=== PATIENT | female | born 1945 | race Caucasian/White ===

== ENCOUNTER → 2019-05-07 | Outpatient (CLI) | payer MEDICARE, BC ==
[~2019-05-07] MED LIST: CALCIUM PO; CHOL200024 PO; CYAN25009 PO; FISH OIL PO; FOLIC ACID PO; LEVO75TA PO; RANI150T4 PO; TURM538C PO
[2019-05-07 11:13] LABS: BASOPHILS # (AUTO) 0.03 x10^3/uL (0-0.1); BASOPHILS % (AUTO) 1 % (0-1); EOSINOPHILS # (AUTO) 0.11 x10^3/uL (0-0.4); EOSINOPHILS % (AUTO) 2 % (1-7); LYMPHOCYTES # (AUTO) 1.92 x10^3/uL (1-3.4); LYMPHOCYTES % (AUTO) 39 % (22-44); MD NO; MEAN CORPUSCULAR HEMOGLOBIN 32.1 pg (27.0-34.8); MEAN CORPUSCULAR HGB CONC 33.1 g/dL (32.4-35.8); MEAN CORPUSCULAR VOLUME 96.8 fL (80-100); MEAN PLATELET VOLUME 8.7 fL (7.4-10.4); MONOCYTES % (AUTO) 12 % (2-9); NEUTROPHILS # (AUTO) 2.21 x10^3/uL (1.8-6.8); NEUTROPHILS % (AUTO) 45 % (42-75); PLATELET COUNT 207 x10^3/uL (130-400); RED BLOOD COUNT 4.41 x10^6/uL (3.82-5.3); RED CELL DISTRIBUTION WIDTH 14.6 % (9.6-15.2)
[2019-05-07 11:24] LABS: ANION GAP 7 mmol/L (5-15); CALCIUM 9.1 mg/dL (8.5-10.1); CHLORIDE 107 mmol/L (98-107)
== END | disposition home or self-care (01) ==
LOC: STAR 10:07
PROVIDERS: ATTEND Obstetrics & Gynecology Female Pelvic Medicine and Reconstructive Surgery
DX: Z01.818 Encounter for other preprocedural examination (principal); N39.3 Stress incontinence (female) (male); N81.6 Rectocele; N81.10 Cystocele, unspecified
CPT/HCPCS: 36415; 71046; 80048; 85025; 93005

== ENCOUNTER 2019-06-03 07:46 | Day surgery (SDC) | payer MEDICARE, BC ==
[~2019-06-03] VITALS: Ht 165.1 cm; Wt 55.8 kg
[2019-06-03] MEDS ORDERED: FENTANYL PF 250 MCG/5ML ONE (08:03)
[2019-06-03] MEDS ORDERED: CEFOTETAN PMX 2GM/50ML 50 ML ONE (08:09)
[2019-06-03] MEDS ORDERED: GLYCOPYRROLATE 0.2MG/1ML, 5ML ONE (08:10)
[2019-06-03] MEDS ORDERED: ONDANSETRON 2MG/ML, 2ML ONE (08:10)
[2019-06-03] MEDS ORDERED: ROCURONIUM 10MG/ML,5ML ONE (08:10)
[2019-06-03] MEDS ORDERED: NEOSTIGMINE 1 MG/ML, 10ML ONE (08:10)
[2019-06-03] MEDS ORDERED: PROPOFOL 10 MG/ML, 20ML ONE (08:10)
[2019-06-03] MEDS ORDERED: DEXAMETHASONE 4 MG/ML, 1ML ONE (08:10)
[2019-06-03] MEDS ORDERED: LACTATED RINGERS 1,000 ML IV SCH ×2 (08:28→12:26)
[2019-06-03] MEDS ORDERED: ACETAMINOPHEN 500 MG TABLET PO ONE (08:30)
[2019-06-03] MEDS ORDERED: GABAPENTIN 300 MG CAPSULE PO ONE (08:30)
[2019-06-03] MEDS ORDERED: LIDOCAINE-MPF 1%, 2ML INFIL ONE (08:30)
[2019-06-03] MEDS ORDERED: INDIGO CARMINE 0.8%, 5ML ONE (09:09)
[2019-06-03] MEDS ORDERED: BUPIVACAINE/PF 0.25% ONE (09:09)
[2019-06-03] MEDS ORDERED: THROMBIN 5,000 UNIT VIAL TP ONE ×3 (09:09→10:36)
[2019-06-03] MEDS ORDERED: NEOMY/POLYMYXIN B GU IRR. 1 ML ONE (09:09)
[2019-06-03] MEDS ORDERED: PROMETHAZINE 12.5 MG SUPP PR PRN (09:30)
[2019-06-03] MEDS ORDERED: HYDROmorphone 2 MG/ML, 1ML IVPush PRN (09:30)
[2019-06-03] MEDS ORDERED: HALOPERIDOL 5 MG/ML IV PRN (09:30)
[2019-06-03] MEDS ORDERED: hydrALAzine 20 MG/ML, 1ML IV PRN (09:30)
[2019-06-03] MEDS ORDERED: LABETALOL 5MG/ML, 20ML IV PRN (09:30)
[2019-06-03] MEDS ORDERED: MORPHINE SULFATE 4 MG/ML, 1ML IVPush PRN (09:30)
[2019-06-03] MEDS ORDERED: PROMETHAZINE 25 MG SUPP PR PRN (09:30)
[2019-06-03] MEDS ORDERED: OXYcodone 5 MG/5 ML ORAL.SOL UDC PO PRN (09:30)
[2019-06-03] MEDS ORDERED: ONDANSETRON ODT 8 MG PO PRN (09:30)
[2019-06-03] MEDS ORDERED: ONDANSETRON 2MG/ML, 2ML IV PRN (09:30)
[2019-06-03] MEDS ORDERED: PROMETHAZINE 25 MG/ML, 1ML IM PRN ×2 (09:30)
[2019-06-03] MEDS ORDERED: MEPERIDINE/PF 25MG/0.5ML IVPush PRN (09:30)
[2019-06-03] MEDS ORDERED: PROMETHAZINE 25 MG/ML, 1ML IV PRN (09:30)
[2019-06-03] MEDS ORDERED: FENTANYL PF 100 MCG/2ML ONE ×3 (10:50→12:31)
[2019-06-03] MEDS ORDERED: PROMETHAZINE 12.5 MG SUPP PR ONE (12:30)
[2019-06-03] MEDS ORDERED: HYDROcodone/APAP 5/325 TABLET PO PRN (12:30)
[2019-06-03] MEDS ORDERED: ONDANSETRON 2MG/ML, 2ML IVPush PRN (12:30)
[2019-06-03] MEDS ORDERED: OXYcodone 5 MG/5 ML ORAL.SOL UDC ONE (12:31)
[2019-06-03] MEDS: FENTANYL PF 100 MCG/2ML IV PRN ×2 (12:35→12:48)
== END 2019-06-03 17:50 | disposition home or self-care (01) ==
LOC: OR 07:46
PROVIDERS: ATTEND Obstetrics & Gynecology Female Pelvic Medicine and Reconstructive Surgery
DX: D25.0 Submucous leiomyoma of uterus (principal); N81.4 Uterovaginal prolapse, unspecified; N39.3 Stress incontinence (female) (male); N32.81 Overactive bladder; G43.909 Migraine, unspecified, not intractable, without status migrainosus; K21.9 Gastro-esophageal reflux disease without esophagitis; Z98.890 Other specified postprocedural states; Z72.89 Other problems related to lifestyle; Z88.8 Allergy status to other drugs, medicaments and biological substances
CPT/HCPCS: 57260; 57288; 57425; 58542; 88305; C1771; C1781; J1100; J2405; J2704; J2710; J3010; J3490; J7120